=== PATIENT | female | born 1960 | race Caucasian/White ===

== ENCOUNTER → 2016-08-01 | Outpatient (CLI) | payer BC ==
[2016-08-01 09:42] LABS: CHCM 33.5; HCT 39.4 % (34.0-46.0); HDW 2.51; HGB 13.4 gm/dL (11.4-16.0); MCH 31.5 pg (25.0-35.0); MCHC 33.9 g/dL (31.0-37.0); MCV 92.9 fL (80.0-100.0); Mean Platelet Volume 6.8; RBC 4.24 m/uL (3.80-5.40); RDW 13.7 % (11.5-15.5)
[2016-08-01 09:53] LABS: ALT 26 U/L (9-52); AST 25 U/L (14-36); Alkaline Phosphatase 116 U/L (38-126); Anion Gap 8 mmol/L; Blood Urea Nitrogen 16 mg/dL (7-17); Calcium 9.4 mg/dL (8.4-10.2); Carbon Dioxide 27 mmol/L (22-30); Chloride 105 mmol/L (98-107); Cholesterol 249 mg/dL (<200); Glucose 89 mg/dL (74-99); HDL Cholesterol 75 mg/dL (40-60); Non-African American GFR(MDRD) >60 (>60 ml/min/1.73 sqM); Potassium 4.7 mmol/L (3.5-5.1); Sodium 140 mmol/L (137-145); Total Bilirubin 0.6 mg/dL (0.2-1.3); Total Protein 7.3 g/dL (6.3-8.2); Triglycerides 209 mg/dL (<150)
== END | disposition home or self-care (01) ==
LOC: LABWHC1 08:32
PROVIDERS: ATTEND Internal Medicine
DX: Z00.01 Encounter for general adult medical examination with abnormal findings (principal); T14.8 Other injury of unspecified body region
CPT/HCPCS: 36415; 80053; 80061; 84439; 84443; 85027; 86618

== ENCOUNTER → 2016-09-09 | Outpatient (CLI) | payer BC ==
--- NOTE | 2016-09-10 13:46 | MM ---
Reason for exam: screening (asymptomatic). Last mammogram was performed 3 years and 8 months ago. History: Patient is postmenopausal. Family history of breast cancer in maternal aunt at age 52. Took hormonal contraceptives for 15 years. Taking estrogen for 11 years beginning at age 41. Physical Findings: A clinical breast exam by your physician is recommended on an annual basis and results should be correlated with mammographic findings. MG Screening Mammo w CAD Bilateral CC and MLO view(s) were taken. Prior study comparison: December 30, 2012, [facility] DIGITAL LEFT BREAST MAMMOGRAM w/CAD. December 28, 2012, bilateral digital screening mammo w/CAD. The breast tissue is heterogeneously dense. This may lower the sensitivity of mammography. No significant changes when compared with prior studies. ASSESSMENT: Negative, BI-RAD 1 RECOMMENDATION: Routine screening mammogram of both breasts in 1 year.
== END | disposition home or self-care (01) ==
LOC: RADMAMWWP 08:02
PROVIDERS: ATTEND Internal Medicine
DX: Z12.31 Encounter for screening mammogram for malignant neoplasm of breast (principal)

== ENCOUNTER → 2016-11-14 | Outpatient (CLI) | payer BC | END | disposition home or self-care (01) | LOC: LABWHC1 16:31 | PROVIDERS: ATTEND Otolaryngology | DX: J30.9 Allergic rhinitis, unspecified (principal) | CPT/HCPCS: 36415 ==

== ENCOUNTER → 2017-02-27 | Outpatient (CLI) | payer BC ==
--- NOTE | 2017-02-27 21:50 | MR ---
EXAMINATION TYPE: MR brain wo/w tylor wo DATE OF EXAM: 02/27/2017 COMPARISON: CT brain 01/02/2012 HISTORY: Migraines, neck stiffness x 3 years TECHNIQUE: Multiplanar, multisequence images of the brain and brainstem is performed without and with IV contras t, utilizing 7 mL intravenous Gadavist . Multiplanar multisequence imaging through the cervical spine . FINDINGS: Brain MRI with and without contrast: Diffusion weighted images demonstrate no evidence of a recent i nfarct or other diffusion abnormality. There is no extra-axial fluid collection or significant white matter signal abnormality. The ventricular system and cisternal spaces are normal in size and appea felipa. The brain volume is age appropriate. Midline structures demonstrate normal morphology with exception of low signal present in the region o f the posterior pituitary on postcontrast images. Superior margin of the pituitary is somewhat convex . The craniocervical junction appears within normal limits. Post contrast images demonstrate no abn ormal enhancement. The dural venous sinuses appear patent. The visualized sinuses are remarkable for inflammatory change in the right maxillary sinus and the globes are intact. IMPRESSION: Low signal in the region of the posterior pituitary on postcontrast images, dedicated [facility] MRI with and without contrast may be of benefit. Sinus disease. Cervical spine MRI: Cervical vertebral bodies show preserved height and alignment is remarkable for m inimal anterolisthesis grade 1 C3-4. There is loss of disc height and signal at C4-5, C5-6 and C6-7, there is associated spondylosis, endplate discogenic marrow signal change. Cervical cord signal is no rmal. C2-3, C3-4: Unremarkable C4-5: Posterior extension of endplate disc complex causes mild anterior mass effect on the thecal sac . No significant central stenosis. Lateral extension of endplate disc complex causes some foraminal e ncroachment right greater than left C5-6: Posterior extension of endplate disc complex causes mild anterior mass effect on the thecal sac . Lateral extension of endplate disc complex causes bilateral foraminal encroachment, no significant central stenosis. C6-7: Posterior extension of endplate disc complex causes anterior mass effect on the thecal sac. On mild central stenosis. Left greater than right-sided foraminal encroachment is present. C7-T1: Unremarkable IMPRESSION: Multilevel degenerative disc disease, foraminal encroachment.
== END | disposition home or self-care (01) ==
LOC: RADMRIMAIN 20:00
PROVIDERS: ATTEND Psychiatry & Neurology Pain Medicine
DX: M50.30 Other cervical disc degeneration, unspecified cervical region (principal); R93.0 Abnormal findings on diagnostic imaging of skull and head, not elsewhere classified
CPT/HCPCS: 70553; 72141; A9581

== ENCOUNTER → 2017-04-09 | Outpatient (CLI) | payer BC ==
--- NOTE | 2017-04-10 08:51 | MR ---
EXAMINATION TYPE: MR pituitary wo/w con DATE OF EXAM: 04/09/2017 COMPARISON: NONE HISTORY: Abnormal Pituitary Gland Gadavist 6.5, Previous MRI on Pacs TECHNIQUE: Multiplanar, multisequence images of the brain and brainstem is performed without and with IV contras t, utilizing 6.5 mL intravenous Gadavist . FINDINGS: Pituitary gland contains a 5 mm area of reduced enhancement within the body and posterior margin of t he gland suspicious for a pituitary microadenoma. Pituitary stock is midline. Pituitary gland measures approximately 7 mm in height. Normal signal void within the vasculature noted. Visualized portion of the brain is symmetric.. IMPRESSION: 1. There is a 5 mm area of reduced enhancement involving the body and posterior margin the pituitary gland. Correlate for pituitary microadenoma.
== END | disposition home or self-care (01) ==
LOC: RADMRIMAIN 20:36
PROVIDERS: ATTEND Psychiatry & Neurology Pain Medicine
DX: R51 Headache (principal)
CPT/HCPCS: 70553; A9581

== ENCOUNTER 2017-04-17 13:29 | Emergency (ER) | payer BC ==
[2017-04-17] MEDS ORDERED: KETOROLAC 30 MG/ML 1 ML VIAL IVP STA (14:24)
[2017-04-17] MEDS ORDERED: IPRATROPIUM-ALBUTEROL 3 ML NEB INHALATION STA (14:24)
[2017-04-17] MEDS ORDERED: SODIUM CHLORIDE 0.9% 1,000 ML IV ONE (14:24)
--- NOTE | 2017-04-17 15:16 | XR ---
EXAMINATION TYPE: XR chest 2V DATE OF EXAM: 04/17/2017 COMPARISON: NONE INDICATION: Cough flulike symptoms TECHNIQUE: Frontal and lateral views of the chest are obtained. FINDINGS: The heart size is normal. The pulmonary vasculature is normal. The lungs are clear. There is hyperinflation flattening the diaphragms compatible COPD. There is sli ght slight exaggeration of the thoracic kyphosis. Subtle scoliosis is within the lower thoracic spine . IMPRESSION: 1. No acute pulmonary process. 2. COPD
--- NOTE | 2017-04-17 15:24 | ED ---
URI HPI - General Chief Complaint: Upper Respiratory Infection Stated Complaint: flu/dizziness & weakness Time Seen by Provider: 04/17/17 14:13 Source: patient Mode of arrival: ambulatory Limitations: no limitations - History of Present Illness Initial Comments: 56-year-old male presented for evaluation of cough congestion rhinorrhea myalgias and arthralgias. She states that she was recently diagnosed with influenza A however she continues to have her symptoms at this time. She denies any other new symptoms and only that she continues to be in distress. - Related Data Home Medications Medication Instructions Recorded Confirmed Benzonatate [Tessalon Perles] 100 mg PO TID PRN 04/17/17 04/17/17 Cyclobenzaprine [Flexeril] 5 - 10 mg PO HS 04/17/17 04/17/17 Estrogens, Conjugated [Premarin] 0.625 mg PO HS 04/17/17 04/17/17 Oseltamivir [Tamiflu] 75 mg PO Q12HR 04/17/17 04/17/17 Venlafaxine HCl ER [Effexor Xr] 75 mg PO DAILY 04/17/17 04/17/17 Previous Rx's Medication Instructions Recorded Ibuprofen [Motrin] 800 mg PO Q4-6H #30 tab 04/17/17 Allergies Allergy/AdvReac Type Severity Reaction Status Date / Time Sulfa (Sulfonamide AdvReac Nausea & Verified 04/17/17 14:27 Antibiotics) Vomiting NARCOTICS AdvReac Hallucinati Uncoded 04/17/17 14:27 ons Review of Systems ROS Statement: Those systems with pertinent positive or pertinent negative responses have been documented in the HPI. ROS Other: All systems not noted in ROS Statement are negative. Constitutional: Reports: fever, chills. Denies: weight change Eyes: Denies: eye pain, eye discharge ENT: Reports: congestion. Denies: ear pain, throat pain, hearing loss Respiratory: Reports: cough. Denies: dyspnea, wheezes Cardiovascular: Denies: chest pain, dyspnea on exertion, syncope Endocrine: Reports: fatigue. Denies: polydipsia, polyuria Gastrointestinal: Denies: abdominal pain, nausea, vomiting Genitourinary: Denies: urgency, dysuria Musculoskeletal: Reports: arthralgia, myalgia. Denies: back pain Skin: Denies: rash, lesions Neurological: Denies: headache, weakness Psychiatric: Denies: anxiety, depression Hematological/Lymphatic: Denies: easy bleeding, easy bruising Past Medical History Additional Past Medical History / Comment(s): migraines History of Any Multi-Drug Resistant Organisms: None Reported Past Surgical History: Appendectomy, Hysterectomy Past Psychological History: Depression Smoking Status: Never smoker Past Alcohol Use History: None Reported Past Drug Use History: None Reported General Exam Limitations: no limitations General appearance: alert, in distress (Mild) Head exam: Present: atraumatic, normocephalic, normal inspection Eye exam: Present: normal appearance, PERRL, EOMI. Absent: scleral icterus, conjunctival injection, periorbital swelling ENT exam: Present: normal exam, mucous membranes moist Neck exam: Present: normal inspection. Absent: tenderness, meningismus, lymphadenopathy Respiratory exam: Present: normal lung sounds bilaterally. Absent: respiratory distress, wheezes, rales, rhonchi, stridor Cardiovascular Exam: Present: regular rate, normal rhythm, normal heart sounds. Absent: systolic murmur, diastolic murmur, rubs, gallop, clicks GI/Abdominal exam: Present: soft, normal bowel sounds. Absent: distended, tenderness, guarding, rebound, rigid Rectal exam: Present: deferred Extremities exam: Present: normal inspection, full ROM, normal capillary refill. Absent: tenderness, pedal edema, joint swelling, calf tenderness Back exam: Present: normal inspection, full ROM Neurological exam: Present: alert, oriented X3, CN II-XII intact Psychiatric exam: Present: normal affect, normal mood Skin exam: Present: warm, dry, intact, normal color. Absent: rash Course Vital Signs 04/17/17 04/17/17 04/17/17 13:39 14:42 14:45 Temperature 98.7 F Pulse Rate 104 H 100 Respiratory 18 19 Rate Blood Pressure 116/94 O2 Sat by Pulse 100 Oximetry 04/17/17 04/17/17 14:52 15:36 Temperature 98.0 F Pulse Rate 100 91 Respiratory 18 Rate Blood Pressure 114/54 O2 Sat by Pulse 100 Oximetry Medical Decision Making - Medical Decision Making 56-year-old female recently diagnosed with influenza A presented for evaluation of arthralgias, myalgias, cough, congestion, and rhinorrhea. A seated same symptoms that she had that led to her diagnosis of influenza however she continues to be miserable. On physical examination there are no acute abnormalities noted however the patient does appear to be mildly distressed and dehydrated. Chest x-ray obtained which showed no acute abnormality. Patient was reevaluated and had some improvement in her symptoms after IV fluids and other symptoms management. She was informed of results and through shared decision making it was determined that she be discharged home with instructions to follow-up with her primary care physician but return to this facility for symptoms should worsen or persist. The patient acknowledged an understanding of all formation provided and agreed with this plan of care. Disposition Clinical Impression: Upper respiratory infection Disposition: HOME SELF-CARE Condition: Stable Instructions: Upper Respiratory Infection (ED) Prescriptions: Ibuprofen [Motrin] 800 mg PO Q4-6H #30 tab Referrals: Beth Jasmine MD [Primary Care Provider] - 1-2 days Time of Disposition: 15:23
[2017-04-17 15:37] VITALS: BP 114/54; PULSE 91; RESP 18; TEMP 98
== END 2017-04-17 15:37 | disposition home or self-care (01) ==
LOC: EC 13:29
DX: J06.9 Acute upper respiratory infection, unspecified (principal); F32.9 Major depressive disorder, single episode, unspecified; Z88.2 Allergy status to sulfonamides; Z88.5 Allergy status to narcotic agent; Z79.899 Other long term (current) drug therapy
CPT/HCPCS: 94640; 71020; 99283; 96374; 96361; J1885

== ENCOUNTER → 2018-03-11 | Outpatient (CLI) | payer BC ==
--- NOTE | 2018-03-16 10:59 | MM ---
Reason for exam: screening (asymptomatic). Last mammogram was performed 1 year and 6 months ago. History: Patient is postmenopausal. Family history of breast cancer in maternal aunt at age 52. Took hormonal contraceptives for 15 years. Taking estrogen for 11 years beginning at age 41. Physical Findings: A clinical breast exam by your physician is recommended on an annual basis and results should be correlated with mammographic findings. MG 3D Screening Mammo W/Cad Bilateral CC and MLO view(s) were taken. Prior study comparison: September 09, 2016, bilateral MG screening mammo w CAD. December 30, 2012, [facility] DIGITAL LEFT BREAST MAMMOGRAM w/CAD. The breast tissue is heterogeneously dense. This may lower the sensitivity of mammography. There is a lower inner quadrant right middle depth 3mm mass with a punctate calcifications. Two additional focal asymmetries with punctate calcifications are seen, one in the upper inner quadrant and one in the lower inner quadrant that overlap on the CC view. ASSESSMENT: Incomplete: need additional imaging evaluation, BI-RAD 0 RECOMMENDATION: Special view mammogram of the right breast. Manage on a clinical basis with regard to breast soreness. If there is focal pain, diagnostic work up would be recommended. If lesion persists on supplemental views, image directed ultrasound is recommended. [facility] will attempt to contact patient to return for supplemental views and ultrasound if indicated.
== END | disposition home or self-care (01) ==
LOC: RADMAMWWP 16:05
PROVIDERS: ATTEND Obstetrics & Gynecology
DX: Z12.31 Encounter for screening mammogram for malignant neoplasm of breast (principal)
CPT/HCPCS: 77063; 77067

== ENCOUNTER → 2018-03-25 | Outpatient (CLI) | payer BC ==
--- NOTE | 2018-03-26 10:28 | MM ---
Reason for exam: additional evaluation requested from abnormal screening. Last mammogram was performed less than 1 month ago. History: Patient is postmenopausal. Family history of breast cancer in maternal aunt at age 52. Took hormonal contraceptives for 15 years. Taking estrogen for 11 years beginning at age 41. Physical Findings: Nurse did not find any significant physical abnormalities on exam. MG 3D Work Up W/Cad RT Spot compression CC, spot compression MLO, and LM view(s) were taken of the right breast. Prior study comparison: March 11, 2018, bilateral MG 3d screening mammo w/cad. September 09, 2016, bilateral MG screening mammo w CAD. Nodular densities persist. Ultrasound recommended inner lower quadrant. These results were verbally communicated with the patient and result sheet given to the patient on 03/25/18. ASSESSMENT: Incomplete: need additional imaging evaluation, BI-RAD 0 RECOMMENDATION: Ultrasound of the right breast.
--- NOTE | 2018-03-26 10:44 | USB ---
Reason for exam: additional evaluation requested from abnormal screening. History: Patient is postmenopausal. Family history of breast cancer in maternal aunt at age 52. Took hormonal contraceptives for 15 years. Taking estrogen for 11 years beginning at age 41. US Breast Workup Limited RT Right limited breast ultrasound including focal area of concern, retroareolar and axilla demonstrates three lesions too small to characterize measuring 3 x 2 x 3mm at 4 o'clock, 3 x 2 x 2mm at 5 o'clock and 2 x 2 x 3mm at 6 o'clock. Scanned 3-6 o'clock. 6 month follow up recommended. These results were verbally communicated with the patient and result sheet given to the patient on03/25/18. ASSESSMENT: Probably benign, BI-RAD 3 RECOMMENDATION: Follow-up diagnostic mammogram and ultrasound of the right breast in 6 months.
== END | disposition home or self-care (01) ==
LOC: RADMAMWWP 15:15
PROVIDERS: ATTEND Obstetrics & Gynecology
DX: R92.8 Other abnormal and inconclusive findings on diagnostic imaging of breast (principal)
CPT/HCPCS: 77061; 77065

== ENCOUNTER → 2018-10-02 | Outpatient (CLI) | payer BC ==
--- NOTE | 2018-10-02 10:09 | MM ---
Reason for exam: follow-up at short interval from prior study. Last mammogram was performed 6 months ago. History: Patient is postmenopausal. Family history of breast cancer in maternal aunt at age 52. Took hormonal contraceptives for 15 years. Taking estrogen for 11 years beginning at age 41. Physical Findings: Nurse did not find any significant physical abnormalities on exam. MG 3D Diag Mammo W/Cad RT CC and MLO view(s) were taken of the right breast. Prior study comparison: March 25, 2018, right breast MG 3d work up w/cad RT. March 11, 2018, bilateral MG 3d screening mammo w/cad. The breast tissue is heterogeneously dense. This may lower the sensitivity of mammography. There are two stable masses at middle depth in the right lower inner quadrant measuring 2.5mm (more anterior mass and a 4mm (more posterior mass). There are stable benign appearing right calcifications. No new suspicious abnormality. These results were verbally communicated with the patient and result sheet given to the patient on 10/02/18. ASSESSMENT: Suspicious, BI-RAD 4 RECOMMENDATION: Ultrasound core biopsy of the right breast. Called Dr. Jensen with mammographic findings and has scheduled an appointment for the patient for 10/02/18 at 12:[address] Gerardo. Biopsy scheduled for 11/03/18 at 12/20. PRELIMINARY REPORT CALLED AND FAXED TO DR. GERARDO ON 10/02/18.
--- NOTE | 2018-10-02 10:21 | USB ---
Reason for exam: follow-up at short interval from prior study. History: Patient is postmenopausal. Family history of breast cancer in maternal aunt at age 52. Took hormonal contraceptives for 15 years. Taking estrogen for 11 years beginning at age 41. US Breast RT Right complete breast ultrasound includes all four quadrants, the retroareolar region and axilla. Finding demonstrates a 3 x 2 x 5mm oval, hypoechoic lesion at 4 o'clock seen on prior, 0.3 x 0.2 x 0.3cm on 03/25/18, a 3 x 2 x 3mm oval lesion at 5 o'clock, seen on prior, 0.3 x 0.2 x 0.2cm on 03/25/18, a 3 x 3 x 2mm oval, cystic, benign lesion at 10 o'clock and a 12 x 4 x 7mm irregular, hypoechoic lesion at 2 o'clock for which a biopsy is recommended, irregular margins. These results were verbally communicated with the patient and result sheet given to the patient on 10/02/18. ASSESSMENT: Suspicious, BI-RAD 4 RECOMMENDATION: Ultrasound core biopsy of the right breast. (2 o'clock) Called Dr. Jensen with mammographic findings and has scheduled an appointment for the patient for 10/02/18 at 12:[address] Gerardo. Biopsy scheduled for 11/03/18 at 12/20. PRELIMINARY REPORT CALLED AND FAXED TO DR. GERARDO ON 10/02/18.
== END | disposition home or self-care (01) ==
LOC: RADMAMWWP 08:20
PROVIDERS: ATTEND Obstetrics & Gynecology
DX: R92.8 Other abnormal and inconclusive findings on diagnostic imaging of breast (principal); Z80.3 Family history of malignant neoplasm of breast
CPT/HCPCS: 77061; 77065

== ENCOUNTER → 2018-10-02 | Outpatient (CLI) | payer BC ==
[2018-10-02 12:35] VITALS: BP 127/78; PULSE 87; RESP 16; TEMP 97.8; BMI 28.9
--- NOTE | 2018-10-02 13:27 | P.GSHP ---
History of Present Illness H&P Date: 10/02/18 The patient is a 57 year old white female who had a had a bilateral mammogram six months ago and was told to have a repeat right breast mammogram in 6 months and an ultrasound. That was done today and she was told she needed a right breast ultrasound core biopsy. The patient does not feel anything of concern in her breasts. She has no history of any trauma or infections to the breast. It is never had a breast biopsy in the past. Family History: 1. mother cystic breast 2. maternal aunt: breast cancer at 52 3. paternal grandmother: brain cancer Medical history: Menarche:13 ,1 [place], breast fed:no, first born at 24 menopause: hysterectomy at 45, endometriosis took her ovaries BCP: 6 years hormones: estrodial 2 years, was on premarin for 12 years Past surgical history: 1.total abdominal hysterectomy 2. laproscopics prior to hysterectomy 3. appy Medical History: none Social History: smoke: none alcohol: none drugs: none - Constitutional Constitutional: Reports sweats - EENT Eyes: denies blurred vision, denies pain Ears: deny: decreased hearing, tinnitus Ears, nose, mouth and throat: Reports headache, Denies sore throat - Breasts Breasts: bilateral: as per HPI - Cardiovascular Cardiovascular: Denies chest pain, Denies shortness of breath - Respiratory Respiratory: Denies cough, Denies 7 - Gastrointestinal Gastrointestinal: Denies abdominal pain, Denies diarrhea, Denies nausea, Denies vomiting - Genitourinary (Female) Genitourinary: Reports kidney stones, Denies dysuria, Denies hematuria - Menstruation Menstruation: Reports post hysterectomy - Musculoskeletal Musculoskeletal: Denies myalgias - Integumentary Integumentary: Denies pruritus, Denies rash - Neurological Neurological: Denies numbness, Denies weakness - Psychiatric Psychiatric: Reports anxiety, Reports depression - Endocrine Comment: gained 24 pounds in a year Endocrine: Reports weight change, Denies fatigue - Hematologic/Lymphatic Comment: none - Allergic/Immunologic Allergic/Immunologic: Reports as per HPI Past Medical History Additional Past Medical History / Comment(s): migraines History of Any Multi-Drug Resistant Organisms: None Reported Past Surgical History: Appendectomy, Hysterectomy Past Psychological History: Depression Smoking Status: Never smoker Past Alcohol Use History: None Reported Past Drug Use History: None Reported Medications and Allergies Home Medications Medication Instructions Recorded Confirmed Type Cyclobenzaprine [Flexeril] 5 - 10 mg PO HS 04/17/17 10/02/18 History Estrogens, Conjugated [Premarin] 0.625 mg PO HS 04/17/17 04/17/17 History Venlafaxine HCl ER [Effexor Xr] 75 mg PO DAILY 04/17/17 10/02/18 History Ibuprofen [Motrin] 800 mg PO DIRECTED PRN 10/02/18 10/02/18 History SUMAtriptan SUCCINATE [Imitrex] 100 mg PO DIRECTED PRN 10/02/18 10/02/18 History Allergies Allergy/AdvReac Type Severity Reaction Status Date / Time Sulfa (Sulfonamide AdvReac Nausea & Verified 10/02/18 12:36 Antibiotics) Vomiting NARCOTICS AdvReac Hallucinati Uncoded 10/02/18 12:36 ons Surgical - Exam Vital Signs Temp Pulse Resp BP Pulse Ox 97.8 F 87 16 127/78 97 10/02/18 12:27 10/02/18 12:27 10/02/18 12:27 10/02/18 12:27 10/02/18 12:27 BMI 28.9 - General well developed, well nourished, no distress - Eyes normal ocular movement - ENT no hearing loss, no congestion - Neck no masses, trachea midline - Respiratory normal expansion, normal respiratory effort, clear to auscultation - Cardiovascular Rhythm: regular Heart Sounds: normal: S1, S2 - Abdomen Abdomen: soft, non tender, no guarding, no rigid, no rebound - Integumentary normal turgor - Neurologic no disoriented, no combative - Musculoskeletal normal gait, normal posture - Psychiatric oriented to time, oriented to person, oriented to place, speech is normal, memory intact breast exam: Right breast: Multi-positional exam no dominant masses or nodules of concern Right axilla: No adenopathy of concern Left breast: Multi-positional exam no dominant masses or nodules of concern, fibrocystic changes Left axilla: No adenopathy of concern Results ultrasound reviewed Assessment and Plan Assessment: Impression: 1. Fibrocystic changes bilateral breast 2. Ultrasonic abnormality of the right breast 3. Family history breast cancer 4. Patient takes supplemental estrogen 5. Patient status post total abdominal hysterectomy for endometriosis Plan: 1. Ultrasound-guided core biopsy right breast 2. Follow up after ultrasound core biopsy Cc: Dr. Jasmine I discussed risk and benefits of the ultrasound core biopsy with the patient and her daughter. They understand and wish to proceed. I've also discussed that until the biopsy results have come back that I would recommend stopping the estrogen as if this for an estrogen receptor positive tumor it could cause it to grow. They understand and we are attempting to schedule a biopsy as soon as possible.
== END ==
LOC: WWCWWP 12:18
PROVIDERS: ATTEND Surgery
DX: Z53.9 Procedure and treatment not carried out, unspecified reason (principal)

== ENCOUNTER → 2019-06-07 | Outpatient (CLI) | payer BC ==
--- NOTE | 2019-06-08 08:20 | MR ---
EXAMINATION TYPE: MR pituitary wo/w con DATE OF EXAM: 06/07/2019 COMPARISON: 04/09/2017 HISTORY: pituitary adenoma CONTRAST: Standard multiplanar, multisequence MRI departmental protocol utilizing 7 mL intravenous Gadavist bhavna olinium contrast. TECHNIQUE: Multiplanar and multiecho imaging on a 3.0 Aria magnet is performed through the pituitary without and with contrast FINDINGS: Within the posterior pituitary is a hyperdense area which appears hypodense on the postcont rast images is measures 0.5 cm in diameter was present previously. Pituitary stalk is midline. Elevation of the pituitary roof is not evident. No involvement of the adj acent carotid siphon is evident. No expansion or erosion of the sella is. IMPRESSION: Stable 0.5 cm slightly hypodense nonenhancing rounded density within the posterior pituitary is stabl e from the comparison of 2016.
== END | disposition home or self-care (01) ==
LOC: RADMRIMAIN 10:26
PROVIDERS: ATTEND Psychiatry & Neurology Neurology
DX: E23.6 Other disorders of pituitary gland (principal); D35.2 Benign neoplasm of pituitary gland
CPT/HCPCS: 70553; A9585

== ENCOUNTER → 2019-07-05 | Outpatient (CLI) | payer BC | END | disposition home or self-care (01) | DX: R06.02 Shortness of breath (principal) | CPT/HCPCS: 93351 ==

== ENCOUNTER → 2019-08-17 | Outpatient (CLI) | payer BC ==
--- NOTE | 2019-08-17 16:02 | CT ---
CT CHEST FOR PULMONARY EMBOLISM. EXAMINATION TYPE: CT angio chest DATE OF EXAM: 08/17/2019 INDICATION: Shortness of breath. CT DLP: 493 mGycm, Automated exposure control for dose reduction was used. CONTRAST: Patient injected with 100 mL of Isovue 370. COMPARISON: None TECHNIQUE: CT of the chest is performed on a spiral scan at 2 mm thick sections. Study is performed with intravenous contrast timed for evaluation for pulmonary embolism. This will limit additional po rtions of the evaluation. 3-D MIP images reconstructed by the technologist are reviewed on the compu ter in the coronal and sagittal planes. FINDINGS: No persistent filling defects are evident to suggest an acute pulmonary embolism. No mediastinal or hilar adenopathy enlarged by CT criteria is evident. The ascending aorta diameter at the level of the main pulmonary artery is 3.5 cm. The main pulmonary artery diameter at the bifur cation is 2.1 cm. Lung windows are clear. There is a moderate size hiatal hernia present. Limited CT section through the upper abdomen are unremarkable. IMPRESSIONS: 1. No acute pulmonary embolism. 2. Moderate size hiatal hernia.
--- NOTE | 2019-08-17 16:41 | US ---
EXAMINATION TYPE: US venous doppler duplex LE DATE OF EXAM: 08/17/2019 3:40 PM COMPARISON: NONE CLINICAL HISTORY: R79.1 abnormal coagulation profile. Elevated D dimer. SIDE PERFORMED: Bilateral TECHNIQUE: The lower extremity deep venous system is examined utilizing real time linear array sonog francisco with graded compression, doppler sonography and color-flow sonography. VESSELS IMAGED: External Iliac Vein (EIV) Common Femoral Vein Deep Femoral Vein Greater Saphenous Vein * Femoral Vein Popliteal Vein Small Saphenous Vein * Proximal Calf Veins (* superficial vessels) Right Leg: Negative for DVT Left Leg: Negative for DVT IMPRESSION: 1. Bilateral lower extremity ultrasound negative for deep venous thrombosis.
== END | disposition home or self-care (01) ==
LOC: RADCTMAIN 14:34
PROVIDERS: ATTEND Family Medicine
DX: R79.1 Abnormal coagulation profile (principal)
CPT/HCPCS: 93970; 71275; Q9967

== ENCOUNTER → 2019-09-09 | Outpatient (CLI) | payer BC ==
--- NOTE | 2019-09-09 12:00 | ECHOF ---
Referral Reason:R06.02 shortness of breath MEASUREMENTS -------- HEIGHT: 152.4 cm WEIGHT: 71.7 kg BP: RVIDd: 2.1 cm (< 3.3) IVSd: 0.8 cm (0.6 - 1.1) LVIDd: 2.7 cm (3.9 - 5.3) LVPWd: 1.1 cm (0.6 - 1.1) IVSs: 1.1 cm LVIDs: 2.0 cm LVPWs: 1.5 cm LAESV Index (A-L): 19.27 ml/m Ao Diam: 2.3 cm (2.0 - 3.7) AV Cusp: 1.9 cm (1.5 - 2.6) LA Diam: 2.2 cm (2.7 - 3.8) MV EXCURSION: 12.451 mm (> 18.000) MV EF SLOPE: 84 mm/s (70 - 150) EPSS: 0.5 cm MV E Srinath: 0.66 m/s MV DecT: 204 ms MV A Srinath: 1.01 m/s MV E/A Ratio: 0.65 RAP: 5.00 mmHg RVSP: 13.29 mmHg FINDINGS -------- Sinus rhythm. This was a technically good study. The left ventricular size is normal. Left ventricular wall thickness is normal. Overall left vent ricular systolic function is normal with, an EF between 55 - 60 %. The diastolic filling pattern is normal for the age of the patient 6.40. The right ventricle is normal in size. The left atrial size is normal. The right atrial size is normal. Interatrial and interventricular septum intact. The aortic valve is trileaflet and appears structurally normal. The mitral valve is normal. There is trace mitral regurgitation. The tricuspid valve appears structurally normal. Trace tricuspid regurgitation present. Right gayle tricular systolic pressure is normal at < 35 mmHg. There is no pulmonic regurgitation present. The aortic root size is normal. Normal inferior vena cava with normal inspiratory collapse consistent with estimated right atrial pre ssure of 5 mmHg. There is no pericardial effusion. CONCLUSIONS -------- 1. Sinus rhythm. 2. This was a technically good study. 3. The left ventricular size is normal. 4. Left ventricular wall thickness is normal. 5. Overall left ventricular systolic function is normal with, an EF between 55 - 60 %. 6. The diastolic filling pattern is normal for the age of the patient 6.40 7. The right ventricle is normal in size. 8. The left atrial size is normal. 9. The right atrial size is normal. 10. Interatrial and interventricular septum intact. 11. The aortic valve is trileaflet and appears structurally normal. 12. The mitral valve is normal. 13. There is trace mitral regurgitation. 14. The tricuspid valve appears structurally normal. 15. Trace tricuspid regurgitation present. 16. Right ventricular systolic pressure is normal at < 35 mmHg. 17. There is no pulmonic regurgitation present. 18. The aortic root size is normal. 19. Normal inferior vena cava with normal inspiratory collapse consistent with estimated right atrial pressure of 5 mmHg. 20. There is no pericardial effusion. MEDICAL DIAGNOSTIC RADIOGRAPHER: Roula Valdovinos RDCS
== END | disposition home or self-care (01) ==
LOC: RADECHMAIN 10:31
PROVIDERS: ATTEND Family Medicine
DX: I08.1 Rheumatic disorders of both mitral and tricuspid valves (principal)
CPT/HCPCS: 93306

== ENCOUNTER → 2020-05-25 | Outpatient (CLI) | payer BC ==
[2020-05-25 11:29] LABS: Basophils # (A) 0.03 X 10*3/uL (0.00-0.10); Basophils % (A) 0.6 %; Eosinophils # (A) 0.09 X 10*3/uL (0.04-0.35); Eosinophils % (A) 1.8 %; HCT 39.2 % (37.2-46.3); HGB 13.3 g/dL (12.0-15.0); Lymphocytes # (A) 1.72 X 10*3/uL (0.90-5.00); Lymphocytes % (A) 33.5 %; MCH 30.2 pg (27.0-32.0); MCHC 33.9 g/dL (32.0-37.0); MCV 89.1 fL (80.0-97.0); Mean Platelet Volume 9.6 fL (9.5-12.2); Monocytes # (A) 0.53 X 10*3/uL (0.20-1.00); Monocytes % (A) 10.3 %; Neutrophils # (A) 2.76 X 10*3/uL (1.80-7.70); Neutrophils % (A) 53.6 %; Platelet Count 280 X 10*3/uL (140-440); RDW 13.3 % (11.5-14.5); WBC 5.14 X 10*3/uL (4.50-10.00)
[2020-05-25 12:21] LABS: African American GFR (CKD) 94.2 (60.0-200.0); Albumin 4.3 g/dL (3.80-4.90); Albumin/Globulin Ratio 1.87 (1.60-3.17); Anion Gap 8.1 mmol/L (4.00-12.00); Calcium 9.4 mg/dL (8.7-10.3); Carbon Dioxide 26.9 mmol/L (21.6-31.8); Globulin 2.3 g/dL (1.6-3.3); Non-African American GFR(CKD) 81.3 (60.0-200.0); Potassium 4.3 mmol/L (3.5-5.5); Total Bilirubin 0.3 mg/dL (0.3-1.2); Total Protein 6.6 g/dL (6.2-8.2)
[2020-05-25 12:32] LABS: T4, Free (Free Thyroxine) 0.8 ng/dL (0.80-1.80)
== END | disposition home or self-care (01) ==
LOC: LABWHC1 07:46
PROVIDERS: ATTEND Internal Medicine Geriatric Medicine
DX: E07.9 Disorder of thyroid, unspecified (principal); R00.2 Palpitations
CPT/HCPCS: 36415; 80053; 84439; 84443; 85025

== ENCOUNTER → 2020-05-26 | Outpatient (CLI) | payer BC ==
[2020-05-27 00:18] LABS: Follicle Stimulating Hormone 45.5 mIU/mL; Luteinizing Hormone 36.1 mIU/mL; Prolactin 6.3 ng/mL (2.8-29.2)
[2020-05-27 00:19] LABS: Estradiol 90.5 pg/mL
== END | disposition home or self-care (01) ==
LOC: LABWHC1 12:58
PROVIDERS: ATTEND Psychiatry & Neurology Neurology
DX: D35.2 Benign neoplasm of pituitary gland (principal); F41.9 Anxiety disorder, unspecified
CPT/HCPCS: 36415; 82670; 83001; 83002; 83003; 84146

== ENCOUNTER → 2021-03-29 | Outpatient (CLI) | payer BC ==
[2021-03-29 14:07] VITALS: TEMP 98.9
[2021-03-29] MEDS: SODIUM CHLORIDE 0.9% 500 ML 500 ML in EMPTY BAG 1 BAG IV PRN (14:15)
[2021-03-29] MEDS: CASIRIVIMAB (REGN10933) (EUA) 600 MG, IMDEVIMAB (REGN10987) (EUA) 600 MG in SODIUM CHLO... IVPB ONE (14:21)
[2021-03-29] MEDS: SODIUM CHLORIDE 0.9% 50 ML IVPB ONE (14:39)
[2021-03-29] MEDS: ONDANSETRON 4 MG/2 ML VIAL IVP ONE (15:00)
[2021-03-29 15:34] VITALS: BP 109/63; PULSE 85; RESP 16
== END ==
LOC: PROCWHC3 13:56
PROVIDERS: ATTEND Nurse Practitioner Gerontology
DX: U07.1 COVID-19 (principal); E66.9 Obesity, unspecified; Z68.30 Body mass index [BMI] 30.0-30.9, adult; Z88.2 Allergy status to sulfonamides
CPT/HCPCS: 96360; 96375; J2405; Q0244; M0243

== ENCOUNTER → 2021-12-05 | Outpatient (CLI) | payer BC ==
--- NOTE | 2021-12-05 09:59 | USB ---
Patient History: Menarche at age 14. First Full-Term at age 23. Left ovary removed at age 41. Right ovary removed at age 41. Hysterectomy at age 41. Postmenopausal. Currently using Estrogen, beginning at age 41 for 11 years. Patient used Hormonal Contraceptives for 15 years. 11/03/2018, MG pre op needle loc RT on the Right side. 2019, Excisional Biopsy on the Right side. Maternal aunt had breast cancer, age 52. Risk Values: Kiersten 5 year model risk: 1.9%. NCI Lifetime model risk: 9.7%. Technique: Method: Whole Breast Handheld. Patient Position: Supine. Prior Study Comparison: 03/11/2018 Bilateral Screening Mammogram, [facility]. 03/25/2018 Right Diagnostic Mammogram, [facility]. 10/02/2018 Right Diagnostic Mammogram, [facility]. Findings: The whole breast of the left breast, the axilla of the left breast and the retroareolar of the left breast were scanned. Whole breast ultrasound was performed including scanning of the subareolar region and axilla. Particular attention to the 5:00 palpable site and palpable area in the axilla. There is no solid or cystic lesion. At the 5:00 palpable site, a prominent rib end is noted. At the axilla, no discrete abnormality is seen. No axillary lymphadenopathy. . Overall Assessment: Benign, BI-RAD 2 Management: Screening Mammogram of both breasts in 1 year. 1. Further clinical management of any suspicious palpable areas. 2. Patient should continue monthly self breast exams. 3. A clinical breast exam by your physician is recommended on an annual basis. Electronically signed and approved by: Lora Cuellar M.D. Radiologist
--- NOTE | 2021-12-05 10:01 | MM ---
Reason for Exam: Clinical finding. Last mammogram was performed 1 year(s) and 10 month(s) ago. Indicated Problems: Lump or thickening of the left side for 4 Week(s). Patient History: Menarche at age 14. First Full-Term at age 23. Left ovary removed at age 41. Right ovary removed at age 41. Hysterectomy at age 41. Postmenopausal. Currently using Estrogen, beginning at age 41 for 11 years. Patient used Hormonal Contraceptives for 15 years. 11/03/2018, MG pre op needle loc RT on the Right side. 2019, Excisional Biopsy on the Right side. Maternal aunt had breast cancer, age 52. Risk Values: Kiersten 5 year model risk: 1.9%. NCI Lifetime model risk: 9.7%. Prior Study Comparison: 12/30/2012 Left Diagnostic Mammogram, [facility]. 09/09/2016 Bilateral Screening Mammogram, [facility]. 03/25/2018 Right Diagnostic Mammogram, [facility]. 10/02/2018 Right Diagnostic Mammogram, [facility]. Tissue Density: The breast tissue is heterogeneously dense. This may lower the sensitivity of mammography. Findings: Analyzed By CAD. Palpable marker placed along the inferior aspect of the left breast. 12:00 posterior focal asymmetry remains unchanged and additionally, it disperses on additional spot views. No significant change from prior exams. Reports interval high risk excisional biopsy on the right at an outside institution. Overall Assessment: Incomplete: need additional imaging evaluation, BI-RAD 0 Management: Diagnostic Breast Ultrasound of the left breast. Whole breast as ordered with particular attention to the left axillary and inferior palpable site. Electronically signed and approved by: Lora Cuellar M.D. Radiologist
== END | disposition home or self-care (01) ==
LOC: RADMAMWWP 08:15
PROVIDERS: ATTEND Internal Medicine Geriatric Medicine
DX: N63.20 Unspecified lump in the left breast, unspecified quadrant (principal); Z78.0 Asymptomatic menopausal state; Z80.3 Family history of malignant neoplasm of breast
CPT/HCPCS: 77062; 77066

== ENCOUNTER → 2023-05-02 | Outpatient (CLI) | payer BC ==
--- NOTE | 2023-05-03 14:48 | BD ---
EXAMINATION TYPE: Axial Bone Density DATE OF EXAM: 05/02/2023 CLINICAL HISTORY: 62 years old Female. ICD-10 CODE: Z13.820 Screening for osteoporosis Height: 59.75" Weight: 147.5lbs FRAX RISK QUESTIONS: Alcohol (3 or more units per day): No Family History (Parent hip fracture): No Glucocorticoids (More than 3mos): No (Ex: prednisone, prednisolone, methylprednisolone, dexamethasone, and hydrocortisone). History of Fracture in Adulthood: No Secondary Osteoporosis: 1. Type 1 Diabetes: No 2. Hyperthyroidism: No 3. Menopause before 45: Hysterectomy at age 43 4. Malnutrition: No 5. Chronic liver disease: No Rheumatoid Arthritis: No Current Tobacco Use: No RISK FACTORS HISTORY OF: Hip Fracture (Right/Left): No Spine Fracture: No History of Wrist Fracture: No Surgery to Spine/Hip(right/left)/Wrist (right/left): No Family History of Osteoporosis: No Active: Yes Diet low in dairy products/other sources of calcium: Yes Lost more than 2 inches in height since high school: No Frequent falls: No Poor Health: No Hyperparathyroidism: No Adrenal Insufficiency: No MEDICATIONS: Prednisone or other steroids: No Thyroid Medications: No Osteoporosis Medications: No Additional Medications: Additional History: N/A EXAM MEASUREMENTS: Bone mineral densitometry was performed using the [employer] System. Bone mineral density as measured about the Lumbar spine is: ----- L1-L4(G/cm2): 0.951 T Score Values are as follows: ----- L1: -2.0 ----- L2: -1.6 ----- L3: -2.1 ----- L4: -2.0 ----- L1-L4: -1.9 Z Score Values are as follows: ----- L1: -0.7 ----- L2: -0.4 ----- L3: -0.8 ----- L4: -0.8 ----- L1-L4: -0.7 Bone mineral density has: decreased -10.3% since study of: 01/24/2014 Bone mineral density about the R hip (g/cm2): 0.855 Bone mineral density about the L hip (g/cm2): 0.824 T Score values are as follows: -----R Neck: -1.7 -----L Neck: -1.8 -----R Total: -1.2 -----L Total: -1.5 Z Score values are as follows: -----R Neck: -0.5 -----L Neck: -0.6 -----R Total: -0.3 -----L Total: -0.5 Bone mineral density has: decreased -3.9% since study of: 01/24/2014 FRAX%s: The graph provided illustrates a 9.3% chance for a major osteoporotic fx and a 1.1% chance fo r the hips probability for fx in 10 years time. IMPRESSION: Osteopenia (T Score between -2.5 and -1). There is slightly increased risk of fracture and the patient may be considered for treatment. Re-Screen 2-5 years. NOTE: T-SCORE=SD OF THE YOUNG ADULT MEAN.
--- NOTE | 2023-05-04 17:46 | MM ---
Reason for Exam: Screening (asymptomatic). Last mammogram was performed 1 year(s) and 5 month(s) ago. Patient History: Menarche at age 14. First Full-Term at age 23. Left ovary removed at age 41. Right ovary removed at age 41. Hysterectomy at age 41. Postmenopausal. Estrogen, starting at age 41 for 11 years. Patient used Hormonal Contraceptives for 15 years. 11/03/2018, MG pre op needle loc RT on the Right side. 2019, Excisional Biopsy on the Right side. Maternal aunt had breast cancer, age 52. Risk Values: Kiersten 5 year model risk: 2.0%. NCI Lifetime model risk: 9.5%. Prior Study Comparison: 02/22/2019 Bilateral MG diagnostic mammo w CAD GAIL - 2, [facility]. 02/08/2020 Bilateral MG diagnostic mammo w CAD GAIL - 2, [facility]. 12/05/2021 Bilateral MG 3D diag mammo w/cad GAIL, [facility]. Tissue Density: There are scattered fibroglandular densities. Findings: Analyzed By CAD. The pattern is symmetrical. There is an ill-defined rounded density within the mid left breast present previously. No suspicious groups of microcalcifications, spiculated or lobular masses, architectural distortion or other secondary signs of malignancy are mammographically apparent. Overall Assessment: Benign, BI-RAD 2 Management: Screening Mammogram of both breasts in 1 year. A negative mammogram report should not preclude additional follow up of suspicious palpable abnormalities. Patient should continue monthly self breast exam. A clinical breast exam by your physician is recommended on an annual basis and results should be correlated with mammographic findings. Electronically signed and approved by: Chadwick Salgado D.O. Radiologis
== END | disposition home or self-care (01) ==
LOC: RADMAMWWP 08:39
PROVIDERS: ATTEND Internal Medicine Geriatric Medicine
DX: Z12.31 Encounter for screening mammogram for malignant neoplasm of breast (principal); Z13.820 Encounter for screening for osteoporosis; M85.89 Other specified disorders of bone density and structure, multiple sites; Z78.0 Asymptomatic menopausal state; Z80.3 Family history of malignant neoplasm of breast
CPT/HCPCS: 77063; 77067; 77080

== ENCOUNTER → 2023-12-15 | Outpatient (CLI) | payer BC ==
--- NOTE | 2023-12-15 14:18 | MR ---
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 Specialized thin s equences were obtained through the pituitary gland/sella turcica. Pre-and post gadolinium sequences were obtained. IV Contrast: 6 cc FINDINGS: 2 interval decrease in size of pituitary adenoma measuring 8 x 4 mm, previously 10 x 6 mm on coronal imaging on sagittal imaging it appears similar in size measuring 6 x 4 mm. The noguera-white junctions, ventricular system, and basal cisterns appear unremarkable. The pituitary stalk is not dev iated. After administration of gadolinium, homogeneous pituitary enhancement is seen. The intracrani al arterial flow voids are intact. High T2 signal Tornwaldt cysts noted measuring up to 9 x 5 mm. IMPRESSION: Pituitary adenoma measures slightly smaller on coronal imaging but similar on sagittal imaging likely due to slice selection. No other significant change.
== END | disposition home or self-care (01) ==
LOC: RADMRIMAIN 12:50
PROVIDERS: ATTEND Internal Medicine Geriatric Medicine
DX: D35.2 Benign neoplasm of pituitary gland (principal)
CPT/HCPCS: 70553